=== PATIENT | female | born 1970 | race Caucasian/White ===

== ENCOUNTER 2024-03-07 10:01 | Outpatient (CLI) | payer OTHER ==
[~2024-03-07 10:01] MED LIST: DIOVAN320 MG PO; SYNTHROID137 MCG PO
== END 2024-03-07 10:15 | disposition home or self-care (01) ==
LOC: RX STUDY 10:01
PROVIDERS: ATTEND Urology
DX: N39.46 Mixed incontinence (principal); N81.10 Cystocele, unspecified